=== PATIENT | male | born 1980 | race Two or more races ===

== ENCOUNTER → 2022-08-16 | Emergency (ER) | payer BC ==
[~2022-08-16] VITALS: Ht 172.7 cm; Wt 90.7 kg
[~2022-08-16] MED LIST: LISINOPRIL20 MG PO; LOVASTATIN20 MG PO
== END | disposition left against medical advice (07) ==
LOC: ER 13:35
DX: Z53.21 Procedure and treatment not carried out due to patient leaving prior to being seen by health care provider (principal)